=== PATIENT | male | born 1990 | race Caucasian/White ===

== ENCOUNTER 2021-11-03 18:01 | Emergency (ER) | payer BC ==
[~2021-11-03] VITALS: Ht 170.2 cm; Wt 95.5 kg
[2021-11-03 19:15] LABS: BASO % 0.6 % (0.0-2.0); EOS % 0.4 % (0.0-4.0); GRAN # 3.4 K/mm3 (1.4-6.5); GRAN % 64.6 % (42.2-75.2); HEMOGLOBIN 14.8 g/dl (13.5-18.0); LYMPH % 19.6 % (20.0-51.0); MEAN CELL VOLUME 90 fl (80.0-100.0); MEAN CORPUSCULAR HEMOGLOBIN 32 pg (27-31); MEAN CORPUSCULAR HGB CONC 36 g/dl (33.0-37.0); MEAN PLATELET VOLUME 9.6 fl (7.4-10.4); MONO # 0.8 K/mm3 (0.1-0.6); MONO % 14.6 % (1.7-9.3); PLATELET COUNT 180 K/mm3 (130-400); RED BLOOD COUNT 4.57 M/mm3 (4.20-5.60); REDCELL DISTRIBUTION WIDTH-CV 11.9 % (11.5-14.5)
[2021-11-03 19:31] LABS: ANION GAP 13 mmol/L (7-16); BLOOD UREA NITROGEN 10 mg/dL (9-21); CALCIUM 8.5 mg/dL (8.4-10.2); CARBON DIOXIDE 21 mmol/L (22-29); CHLORIDE 104 mmol/L (98-107); CREATINE KINASE 318 U/L (30-200); CREATININE, serum 1.04 mg/dL (0.72-1.25); GLUCOSE 103 mg/dL (70-99); POTASSIUM 3.8 mmol/L (3.5-4.5); SODIUM 138 mmol/L (136-145)
[2021-11-03 19:38] LABS: TROPONIN-I < 0.010 ng/mL (0.00-0.033)
[2021-11-03 20:37] VITALS: TEMP 98.7
[2021-11-03 21:09] VITALS: BP 114/78; PULSE 78
== END 2021-11-03 21:09 | disposition home or self-care (01) ==
LOC: COL.ER 18:01
PROVIDERS: Emergency Medicine
DX: M79.18 Myalgia, other site (principal); R10.84 Generalized abdominal pain; R50.9 Fever, unspecified; Z20.822 Contact with and (suspected) exposure to COVID-19; Z28.310 Unvaccinated for COVID-19
CPT/HCPCS: J1885; J7120